=== PATIENT | male | born 1990 | race Caucasian/White ===

== ENCOUNTER 2017-01-10 21:10 | Emergency (ER) | payer OTHER ==
[~2017-01-10] VITALS: Ht 167.6 cm; Wt 87.1 kg
[2017-01-10 21:20] VITALS: BP 131/61
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
== END 2017-01-10 22:16 | disposition home or self-care (01) ==
LOC: ER 21:10
DX: R50.9 Fever, unspecified (principal); M79.602 Pain in left arm; T50.A25A Adverse effect of mixed bacterial vaccines without a pertussis component, initial encounter; Y92.89 Other specified places as the place of occurrence of the external cause
CPT/HCPCS: 99281